=== PATIENT | male | born 1975 | race Two or more races ===

== ENCOUNTER 2024-06-13 06:09 | Inpatient (IN) | payer BC, OTHER ==
[~2024-06-13] VITALS: Ht 162.6 cm; Wt 99.9 kg
[2024-06-13 06:41] VITALS: PULSE 81; RESP 16; O2SAT 93
[2024-06-13] MEDS ORDERED: ONDANSETRON ODT 4 MG TAB PO ONE (06:45)
[2024-06-13] MEDS: ONDANSETRON HCL 4 MG/2 ML VIAL IV ONE (06:46)
[2024-06-13] MEDS: ONDANSETRON HCL 4 MG/2 ML VIAL ONE (06:46)
[2024-06-13] MEDS: HYDROcodone-ACET 5/325MG TAB PO ONE (06:46)
[2024-06-13 07:06] LABS: Basophils # (auto) 0 10 ^3/uL (0-0.2); Eosinophils # (auto) 0.3 10 ^3/uL (0-0.8); Eosinophils % (auto) 4.3 % (0.0-7.0); Hematocrit 48.4 % (41.0-53.0); Hemoglobin 16.9 g/dL (13.5-17.5); Lymphocytes # (auto) 0.5 10 ^3/uL (0.4-5.4); Lymphocytes % (auto) 6.3 % (10.0-50.0); Mean Corpuscular Hemoglobin 31.7 pg (28.0-32.0); Mean Corpuscular Hgb Conc. 34.9 g/dL (32.0-36.0); Monocytes # (auto) 0.5 10 ^3/uL (0-1.3); Monocytes % (auto) 6.1 % (0.0-12.0); Neutrophils # (auto) 6.7 10 ^3/uL (1.6-8.6); Neutrophils % (auto) 83.3 % (37.0-80.0); Platelet Count (auto) 300 10^3/uL (140-450); Red Blood Cells 5.32 10^6/uL (4.5-5.90); Red Cell Distribution Width 12.9 % (11.8-14.3)
--- NOTE | 2024-06-13 07:19 | ED.PDOC ---
History of Present Illness HPI Comments 49-year-old male presents to the ER with no prior history associated with the chief complaint of MUSTAFA. Patient reports on waking up with a headache, sweatiness, N/ and dizziness. Denies chills,/V/D, CP SOB or other associated symptoms, modifiers, or recent injuries at this time. Chief Complaint: Nausea/Vomiting Time Seen by MD: 06:40 Reviewed Notes: Nurses Notes, Medications, Allergies Allergies: Coded Allergies: No Known Drug Allergy (Verified Allergy, Unknown, 06/13/24) Information Source: Patient Mode of Arrival: Ambulatory Severity: Moderate Timing: Hours Duration: Since onset, Hours Prehospital treatment: None Past Medical History PAST MEDICAL HISTORY: Denies Surgical History: Denies all surgeries Family History Family History: Reviewed,noncontributory to illness, Unknown Social History Smoker: Non-Smoker Alcohol: Denies ETOH Use Drugs: Denies Drug Use Lives In: Home Constitutional: reports: sweats; denies: chills, diaphoresis, fatigue, fever, malaise, weakness, others EENTM: denies: blurred vision, double vision, ear bleeding, ear discharge, ear drainage, ear pain, ear ringing, eye pain, eye redness, hearing loss, mouth pain, mouth swelling, nasal discharge, nose bleeding, nose congestion, nose pain, photophobia, tearing, throat pain, throat swelling, voice changes, others Respiratory: denies: cough, hemoptysis, orthopnea, SOB at rest, shortness of breath, SOB with excertion, stridor, wheezing, others Cardiovascular: denies: chest pain, dizzy spells, diaphoresis, Dyspnea on exertion, edema, irregular heart beat, left arm pain, lightheadedness, palpitations, PND, syncope, others Gastrointestinal: reports: nausea; denies: abdomen distended, abdominal pain, blood streaked bowels, constipated, diarrhea, dysphagia, difficulty swallowing, hematemesis, melena, poor appetite, poor fluid intake, rectal bleeding, rectal pain, vomiting, others Genitourinary: denies: burning, dysuria, flank pain, frequency, hematuria, incontinence, penile discharge, penile sore, pain, testicle pain, testicle swelling, urgency, others Neurological: reports: dizziness, headache; denies: fainting, left sided numbness, left sided weakness, numbness, paresthesia, pre-existing deficit, right sided numbness, right sided weakness, seizure, speech problems, tingling, tremors, weakness, others Musculoskeletal: denies: back pain, gout, joint pain, joint swelling, muscle pain, muscle stiffness, neck pain, others Integumetry: denies: bruises, change in color, change in hair/nails, dryness, laceration, lesions, lumps, rash, wounds, others Allergic/Immunocompromised: denies: Difficulty Healing, Frequent Infections, Hives, Itching, others Hematologic/Lymphatic: denies: anemia, blood clots, easy bleeding, easy bruising, swollen glands, others Endocrine: denies: excessive hunger, excessive sweating, excessive thirst, excessive urination, flushing, intolerance to cold, intolerance to heat, unexplained weight gain, unexplained weight loss, others Psychiatric: denies: anxiety, bipolar disorder, depression, hopeless, panic disorder, schizophrenia, sleepless, suicidal, others All Other Systems: Reviewed and Negative Physical Exam Exam Comments Diaphoretic General Appearance: No Apparent Distress, Normal HEENT: Normal ENT Inspection, Pharynx Normal, TMs Normal Neck: Full Range of Motion, Non-Tender, Normal, Normal Inspection Respiratory: Chest Non-Tender, Lungs Clear, No Accessory Muscle Use, No Respiratory Distress, Normal Breath Sounds Cardiovascular: No Edema, No JVD, No Murmur, No Gallop, Normal Peripheral Pulses, Regular Rate/Rhythm Breast Exam: Deferred Gastrointestinal: No Organomegaly, Non Tender, No Pulsatile Mass, Normal Bowel Sounds, Soft Genitalia: Deferred Pelvic: Deferred Rectal: Deferred Extremities: No calf tenderness, Normal capillary refill, Normal inspection, Normal range of motion, Non-tender, No pedal edema Musculoskeletal : Apperance: Normal Neurologic: Alert, neurological physiotherapist II-XII nml as Tested, No Motor Deficits, Normal Affect, Normal Mood, No Sensory Deficits Cerebellar Function: Normal Reflexes: Normal Skin: Dry, Normal Color, Warm Lymphatic: No Adenopathy Was a procedure done? Was a procedure done?: No Differential Dx Considerations may include: acs, cephalea, meningitis, anxiety, sepsis, pneumonia X-Ray, Labs, Meds, VS Vital Signs Date Time Temp Pulse Resp B/P (MAP) Pulse Ox O2 Delivery O2 Flow Rate FiO2 06/13/24 08:35 97.6 66 18 130/81 (97) 96 97.6 06/13/24 06:41 81 16 93 Room Air* 0 21 06/13/24 06:41 97.6 81 16 160/118 (132) 93 97.6 06/13/24 06:35 81 06/13/24 06:28 97.6 81 16 160/118 (132) 93 Lab Test 06/13/24 08:03 06/13/24 06:59 Range/Units Troponin I High Sensitivity < 3 L < 3 L </=54 ng/L White Blood Count 8.0 4.4-10.8 10^3/uL Red Blood Count 5.32 4.5-5.90 10^6/uL Hemoglobin 16.9 13.5-17.5 g/dL Hematocrit 48.4 41.0-53.0 % Mean Corpuscular Volume 91.0 80.0-100.0 fL Mean Corpuscular Hemoglobin 31.7 28.0-32.0 pg Mean Corpuscular Hemoglobin Concent 34.9 32.0-36.0 g/dL Red Cell Distribution Width 12.9 11.8-14.3 % Platelet Count 300 140-450 10^3/uL Mean Platelet Volume 6.9 6.9-10.8 fL Neutrophils (%) (Auto) 83.3 H 37.0-80.0 % Lymphocytes (%) (Auto) 6.3 L 10.0-50.0 % Monocytes (%) (Auto) 6.1 0.0-12.0 % Eosinophils (%) (Auto) 4.3 0.0-7.0 % Basophils (%) (Auto) 0.0 0.0-2.0 % Neutrophils # (Auto) 6.7 1.6-8.6 10 ^3/uL Lymphocytes # (Auto) 0.5 0.4-5.4 10 ^3/uL Monocytes # (Auto) 0.5 0-1.3 10 ^3/uL Eosinophils # (Auto) 0.3 0-0.8 10 ^3/uL Basophils # (Auto) 0 0-0.2 10 ^3/uL Nucleated Red Blood Cells 0.0 % Sodium Level 143 136-145 mmol/L Potassium Level 4.7 3.5-5.1 mmol/L Chloride Level 109 H 98-107 mmol/L Carbon Dioxide Level 25 20-31 mmol/L Anion Gap 9 5-15 Blood Urea Nitrogen 19 9-23 mg/dL Creatinine 1.25 0.700-1.30 mg/dL Glomerular Filtration Rate Calc 70 >90 mL/min BUN/Creatinine Ratio 15.2 10.0-20.0 Serum Glucose 117 H 74-106 mg/dL Calcium Level 9.5 8.7-10.4 mg/dL Current Medications Medications (Trade) Dose Ordered Sig/Stoney Route Start Time Stop Time Status Last Admin Ondansetron HCl (Zofran) 4 mg ONCE ONCE IV 06/13/24 06:45 06/13/24 06:46 DC 06/13/24 06:46 Ceftriaxone Sodium 50 ml @ 100 mls/hr ONCE ONCE IV 06/13/24 08:30 06/13/24 08:59 DC 06/13/24 08:37 Time of 1ST Reevaluation: 07:10 Reevaluation 1ST: Unchanged Patient Education/Counseling: Diagnosis, Treatment, Prognosis Family Education/Counseling: No Family Present Additional Information HI DATA VOL/COMPLEXITY:>2 Ordered Test-PHA, lab, EKG Reviewed Results-cbc, chem, cxr, ekg Interpreted Results-(CT/US) Discuss Tx/Results-with medical personnel, identity management consultant, pt and family pt is diaphoretic due to a pneumonia found on the cxr. he does not feel well and will be admitted for further treatments and eval Departure 1 Departure Time of Disposition: 09:44 Impression: Primary Impression: Pneumonia Disposition: ADMITTED INPATIENT Admit to: Med Surg Condition: Stable Critical Care Note Critical Care Time?: Yes (45 min-critical care time only) Critical care comment: due to the real possibility of patient's condition deteriorating, his care requires my highest attention and readiness to intervene. i assessed the patient, ordered the proper tests and treatments, reassessed him for response, formulated a plan, discussed it with medical personnel, and consultants,. total time include more than 50% face to face contact and does not include any procedures Stability Stability form required: No I personally scribed for ANUPAMA GLORIA MD ([email or web address]) on 06/13/24 at 07:19. Electronically submitted by Frederick Dickson ([email or web address]). ANUPAMA GLORIA MD Jun 13, 2024 07:19
--- NOTE | 2024-06-13 07:23 | DVH ---
CHEST RADIOGRAPH Indication: diaphoresis Technique: Single frontal view of the chest was obtained Comparison: None FINDINGS: The cardiac silhouette is unremarkable. The lungs demonstrate left basilar/ retrocardiac airspace opa cification. The pulmonary vasculature is unremarkable. There is no pleural effusion.. There is no pne umothorax. IMPRESSION: 1. Left basilar/ retrocardiac airspace opacification. << >>
--- NOTE | 2024-06-13 07:28 | DVH ---
CT HEAD WITHOUT CONTRAST Indication: headache EXAM DATE: 06/13/2024 07:00 AM COMPARISON: None TECHNIQUE: CT of the head without intravenous contrast. RADIATION DOSE: CTDIvol: 55.9 mGy, DLP: 896.13 mGy*cm FINDINGS: There is no intracranial hemorrhage. There is no extra-axial fluid, mass, mass effect or midline shif t. The ventricles are midline and normal in size. Basilar cisterns are patent. Bowers-white differentia tion is maintained. The paranasal sinuses and mastoids are well-pneumatized. Imaged portion of the orbits are unremarkabl e. IMPRESSION: 1. No intracranial hemorrhage or mass effect.
[2024-06-13 07:31] LABS: Chloride 109 mmol/L (98-107); Potassium 4.7 mmol/L (3.5-5.1); Sodium 143 mmol/L (136-145)
[2024-06-13 07:32] LABS: Anion Gap 9 (5-15); Carbon Dioxide 25 mmol/L (20-31)
[2024-06-13 07:33] LABS: Calcium 9.5 mg/dL (8.7-10.4)
[2024-06-13 07:37] LABS: BUN/Creatinine Ratio 15.2 (10.0-20.0); Blood Urea Nitrogen 19 mg/dL (9-23); Glucose 117 mg/dL (74-106)
[2024-06-13] MEDS: cefTRIAXone 1GM/50ML D5W 50 ML IV ONE (08:37)
[2024-06-13] MEDS ORDERED: HYDROcodone-ACET 5/325MG TAB PO PRN ×2 (15:30→15:45)
[2024-06-13] MEDS ORDERED: SODIUM CHLORIDE 0.9% 1,000 ML IV SCH (15:30)
[2024-06-13] MEDS ORDERED: predniSONE 20 MG TAB PO SCH (15:30)
[2024-06-13] MEDS ORDERED: DOCUSATE SOD 100 MG CAP PO PRN ×2 (15:30→15:45)
[2024-06-13] MEDS ORDERED: IPRATROPIUM BROM 0.5 MG/2.5ML INH SOL NEB PRN ×2 (15:30→15:45)
[2024-06-13] MEDS ORDERED: AZITHROMYCIN 250 MG TAB PO SCH (15:30)
[2024-06-13] MEDS ORDERED: ALBUTEROL SULF 2.5 MG/0.5ML(0.5%) NEB SOLN NEB PRN ×2 (15:30→15:45)
[2024-06-13] MEDS ORDERED: MAALOX PLUS or MAALOX 30 ML PO PRN ×2 (15:30→15:45)
[2024-06-13] MEDS ORDERED: MORPHINE SULFATE INJ 2 MG/ml SYRG IV PRN ×2 (15:30→15:45)
[2024-06-13] MEDS ORDERED: ONDANSETRON HCL 4 MG/2 ML VIAL IV PRN ×2 (15:30→15:45)
[2024-06-13] MEDS ORDERED: ACETAMINOPHEN 325 MG TAB PO PRN (15:30)
[2024-06-13] MEDS ORDERED: LORazepam 0.5 MG TAB PO PRN ×2 (15:30→15:45)
[2024-06-13] MEDS ORDERED: TEMAZEPAM 15 MG CAP PO PRN ×2 (15:30→15:45)
--- NOTE | 2024-06-13 15:34 | DVHHP2 ---
History of Present Illness Reason for Visit: weakness History of Present Illness 49 yo male with no stated past medical history came to the ed for evaluation with complaints weakness headaches and not feeling well and feeling like they cant function well patient on evaluation was suspected to have URI infection and recommended for admission and continued treatment Pulmonary: Pneumonia Review of Systems Constitutional: Yes: Fever, Weakness; No: Chills, Sweats, Malaise, Other Eyes: No: Pain, Vision change, Conjunctivae inflammation, Eyelid inflammation, Other, Redness ENT: No: Ear pain, Ear discharge, Nose pain, Nose discharge, Nose congestion, Mouth pain, Mouth swelling, Throat pain, Throat swelling, Other Respiratory: Cough, SOB with excertion; No: Dry, Shortness of breath, Wheezing, Hemoptysis, Pleuritic Pain, Sputum, Wheezing, Other Cardiovascular: No: Chest Pain, Palpitations, Orthopnea, Paroxysmal Noc. Dyspnea, Edema, Lt Headedness, Other Gastrointestinal: No: Nausea, Vomiting, Abdominal Pain, Diarrhea, Constipation, Melena, Hematochezia, Other Genitourinary: No Dysuria, No Frequency, No Incontinence, No Hematuria, No Retention, No Other Musculoskeletal: No: other, neck pain, shoulder pain, arm pain, back pain, hand pain, leg pain, foot pain Skin: No: Rash, Lesions, Jaundice, Bruising, Other Neurological: Weakness; No: Numbness, Incoordination, Change in speech, Confusion, Seizures, Other Allergies: Coded Allergies: No Known Drug Allergy (Verified Allergy, Unknown, 06/13/24) Exam Vital Signs Vital Signs Date Time Temp Pulse Resp B/P (MAP) Pulse Ox O2 Delivery O2 Flow Rate FiO2 06/13/24 13:58 69 16 122/81 (95) 93 06/13/24 09:53 97.8 97.8 06/13/24 09:15 Room Air* 0 21 General Appearance: Alert, Oriented X3 HEENT: Atraumatic, PERRLA Respiratory: Clear to auscultation (cough ), Normal air movement Cardiovascular: Regular rate, Normal S1, Normal S2 Abdominal: Normal bowel sounds, Soft, No tenderness Extremities: No clubbing, No cyanosis, No edema Skin: No rashes, No breakdown Neuro: Normal gait, Normal speech Psych/Mental Status: Mood NL Labs/Xrays Labs Test 06/13/24 08:03 06/13/24 06:59 Range/Units Troponin I High Sensitivity < 3 L </=54 ng/L White Blood Count 8.0 4.4-10.8 10^3/uL Red Blood Count 5.32 4.5-5.90 10^6/uL Hemoglobin 16.9 13.5-17.5 g/dL Hematocrit 48.4 41.0-53.0 % Mean Corpuscular Volume 91.0 80.0-100.0 fL Mean Corpuscular Hemoglobin 31.7 28.0-32.0 pg Mean Corpuscular Hemoglobin Concent 34.9 32.0-36.0 g/dL Red Cell Distribution Width 12.9 11.8-14.3 % Platelet Count 300 140-450 10^3/uL Mean Platelet Volume 6.9 6.9-10.8 fL Neutrophils (%) (Auto) 83.3 H 37.0-80.0 % Lymphocytes (%) (Auto) 6.3 L 10.0-50.0 % Monocytes (%) (Auto) 6.1 0.0-12.0 % Eosinophils (%) (Auto) 4.3 0.0-7.0 % Basophils (%) (Auto) 0.0 0.0-2.0 % Neutrophils # (Auto) 6.7 1.6-8.6 10 ^3/uL Lymphocytes # (Auto) 0.5 0.4-5.4 10 ^3/uL Monocytes # (Auto) 0.5 0-1.3 10 ^3/uL Eosinophils # (Auto) 0.3 0-0.8 10 ^3/uL Basophils # (Auto) 0 0-0.2 10 ^3/uL Nucleated Red Blood Cells 0.0 % Sodium Level 143 136-145 mmol/L Potassium Level 4.7 3.5-5.1 mmol/L Chloride Level 109 H 98-107 mmol/L Carbon Dioxide Level 25 20-31 mmol/L Anion Gap 9 5-15 Blood Urea Nitrogen 19 9-23 mg/dL Creatinine 1.25 0.700-1.30 mg/dL Glomerular Filtration Rate Calc 70 >90 mL/min BUN/Creatinine Ratio 15.2 10.0-20.0 Serum Glucose 117 H 74-106 mg/dL Calcium Level 9.5 8.7-10.4 mg/dL Assessment/Plan Assessment/Plan Admit Med/Surge Suspected PNA CXR with left sided opacities IV abx IV hydration Breathing treatment prn prn pain meds steroids daily Plan discussed with: Patient My Orders Orders - VERNA POSADAS MD Procedure Category Date Status Time Ceftriaxone Ivpb PHA 06/14/24 Transmitted Rocephin 10:00 Azithromycin Tablet PHA 06/13/24 Transmitted (Zithromax Tablet) 15:30 Prednisone Tablet PHA 06/13/24 Transmitted 15:30 Albuterol Medneb PHA 06/13/24 Transmitted (Ventolin Medneb) 15:30 Ipratropium Medneb PHA 06/13/24 Transmitted (Atrovent Medneb) 15:30 Med Neb Initial RT 06/13/24 Transmitted Treatment 15:21 Admit ADMIT 06/13/24 Transmitted 15:21 Code Status CODE 06/13/24 Transmitted 15:21 Vital Signs [facility] 06/13/24 Transmitted 15:21 Review Orders With ASHLYN 06/13/24 Transmitted Adm. 15:21 Regular Diet DIET 06/13/24 Transmitted Dinner Sodium Chloride 0.9% PHA 06/13/24 Transmitted 15:30 Lorazepam Tablet PHA 06/13/24 Transmitted (Ativan Tablet) 15:30 Alum & Mag PHA 06/13/24 Transmitted Hydrox-Simethicone 15:30 Docusate Sodium PHA 06/13/24 Transmitted Capsule (Colace 15:30 Acetaminophen Tablet PHA 06/13/24 Transmitted (Tylenol Tablet) 15:30 Temazepam (Restoril) PHA 06/13/24 Transmitted 15:30 Notify Of Changes [facility] 06/13/24 Transmitted From Base 15:21 Advance Directive [facility] 06/13/24 Transmitted 15:21 Basic Metabolic Panel LAB 06/14/24 Verified 04:00 Complete Blood Count LAB 06/14/24 Verified 04:00 Patient Condition ORDERS 06/13/24 Transmitted 15:21 Allergies ASHLYN 06/13/24 Transmitted 15:21 Hydrocodone-Acet PHA 06/13/24 Transmitted 5/325mg Tab ([place] 15:30 Ondansetron Hcl PHA 06/13/24 Transmitted (Zofran) 15:30 Morphine 2mg Iv Q4hprn PHA 06/13/24 Transmitted 15:30 Notify Of Changes [facility] 06/13/24 Transmitted From Base 15:21 Oxygen By Nasal RT 06/13/24 Transmitted Cannula 15:21 Problem List: (1) Pneumonia Date of Service: Jun 13, 2024 Billing Provider: VERNA POSADAS MD Common Visit Codes: 99233-[id number] INP/OBS CARE (HIGH) VERNA POSADAS MD Jun 13, 2024 15:34
[2024-06-13] MEDS: SODIUM CHLORIDE 0.9% 1,000 ML IV SCH (16:46)
[2024-06-13 16:50] VITALS: BP 125/79; PULSE 63; RESP 16; TEMP 97.8; O2SAT 92
[2024-06-13 20:44] VITALS: O2SAT 97
[2024-06-14 04:42] LABS: Basophils # (auto) 0.1 10 ^3/uL (0-0.2); Basophils % (auto) 0.7 % (0.0-2.0); Eosinophils # (auto) 0.2 10 ^3/uL (0-0.8); Eosinophils % (auto) 2.1 % (0.0-7.0); Hematocrit 47.8 % (41.0-53.0); Hemoglobin 16.7 g/dL (13.5-17.5); Lymphocytes # (auto) 2.8 10 ^3/uL (0.4-5.4); Lymphocytes % (auto) 29.2 % (10.0-50.0); Mean Corpuscular Hemoglobin 31.9 pg (28.0-32.0); Mean Corpuscular Hgb Conc. 34.9 g/dL (32.0-36.0); Mean Corpuscular Volume 91.4 fL (80.0-100.0); Monocytes # (auto) 0.5 10 ^3/uL (0-1.3); Monocytes % (auto) 5.1 % (0.0-12.0); Neutrophils % (auto) 62.9 % (37.0-80.0); Nucleated Red Blood Cells % 0.1 %; Platelet Count (auto) 308 10^3/uL (140-450); Red Blood Cells 5.23 10^6/uL (4.5-5.90); Red Cell Distribution Width 12.9 % (11.8-14.3); White Blood Cell 9.6 10^3/uL (4.4-10.8)
[2024-06-14 04:47] LABS: Chloride 108 mmol/L (98-107); Potassium 3.8 mmol/L (3.5-5.1); Sodium 143 mmol/L (136-145)
[2024-06-14 04:48] LABS: Anion Gap 8 (5-15); Calcium 9.4 mg/dL (8.7-10.4); Carbon Dioxide 27 mmol/L (20-31)
[2024-06-14 04:53] LABS: BUN/Creatinine Ratio 12.8 (10.0-20.0); Blood Urea Nitrogen 17 mg/dL (9-23); Glucose 86 mg/dL (74-106)
[2024-06-14] MEDS: ACETAMINOPHEN 325 MG TAB PO PRN (08:13)
[2024-06-14] MEDS: cefTRIAXone 1GM/50ML D5W 50 ML IV SCH (09:29)
[2024-06-14] MEDS ORDERED: cefTRIAXone 1GM/50ML D5W 50 ML IV SCH (10:00)
[2024-06-14] MEDS: predniSONE 20 MG TAB PO SCH (10:23)
[2024-06-14] MEDS: AZITHROMYCIN 250 MG TAB PO SCH (10:24)
[2024-06-14 10:34] VITALS: O2SAT 95
[2024-06-14 11:50] LABS: COVID19 ANTIGEN SOFIA FIA NEGATIVE (NEGATIVE); Rapid Influenza A Negative (Negative); Rapid Influenza B Negative (Negative)
[2024-06-14 13:38] VITALS: BP 115/75; PULSE 62; RESP 17; TEMP 98.7; O2SAT 96
--- NOTE | 2024-06-14 14:41 | ECG ---
[facility] Test Date: 2024-06-13 Test Time: 06:35:01 Pat Name: MAYO TUCKER Department: ER Room: [address] [place] [address] A Gender: M [employer] Room: DALE : 1975 Requested By: ANUPAMA GLORIA Order Number: [id number] Reading MD: Reno Garcia Measurements Intervals [place] Rate: 81 P: 54 TN: 163 QRS: -8 QRSD: 91 T: 3 QT: 382 QTc: 444 Interpretive Statements Sinus rhythm Electronically Signed On 06-15-2024 8:24:56 PST by Reno Garcia Please click the below link to view image of tracing.
[2024-06-14] MEDS ORDERED: AZIT500T66 PO (15:31)
--- NOTE | 2024-06-14 19:13 | DVHDSRES ---
Discharge Summary Date of Admission Resident Creating Document: KIRK SUE RESIDENT Jun 13, 2024 at 15:21 Date of Discharge: Jun 14, 2024 Admitting Diagnosis Suspected PNA CXR with left sided opacities Wounds: no wounds Labs/Diagnostic Data: Laboratory Results Test 06/14/24 11:00 06/14/24 03:49 06/13/24 08:03 Influenza Type A Antigen Negative (Negative) Influenza Type B Antigen Negative (Negative) SARS-CoV-2 Antigen (Rapid) Negative (NEGATIVE) White Blood Count 9.6 10^3/uL (4.4-10.8) Red Blood Count 5.23 10^6/uL (4.5-5.90) Hemoglobin 16.7 g/dL (13.5-17.5) Hematocrit 47.8 % (41.0-53.0) Mean Corpuscular Volume 91.4 fL (80.0-100.0) Mean Corpuscular Hemoglobin 31.9 pg (28.0-32.0) Mean Corpuscular Hemoglobin Concent 34.9 g/dL (32.0-36.0) Red Cell Distribution Width 12.9 % (11.8-14.3) Platelet Count 308 10^3/uL (140-450) Mean Platelet Volume 7.1 fL (6.9-10.8) Neutrophils (%) (Auto) 62.9 % (37.0-80.0) Lymphocytes (%) (Auto) 29.2 % (10.0-50.0) Monocytes (%) (Auto) 5.1 % (0.0-12.0) Eosinophils (%) (Auto) 2.1 % (0.0-7.0) Basophils (%) (Auto) 0.7 % (0.0-2.0) Neutrophils # (Auto) 6.0 10 ^3/uL (1.6-8.6) Lymphocytes # (Auto) 2.8 10 ^3/uL (0.4-5.4) Monocytes # (Auto) 0.5 10 ^3/uL (0-1.3) Eosinophils # (Auto) 0.2 10 ^3/uL (0-0.8) Basophils # (Auto) 0.1 10 ^3/uL (0-0.2) Nucleated Red Blood Cells 0.1 % Sodium Level 143 mmol/L (136-145) Potassium Level 3.8 mmol/L (3.5-5.1) Chloride Level 108 mmol/L (98-107) Carbon Dioxide Level 27 mmol/L (20-31) Anion Gap 8 (5-15) Blood Urea Nitrogen 17 mg/dL (9-23) Creatinine 1.33 mg/dL (0.700-1.30) Glomerular Filtration Rate Calc 65 mL/min (>90) BUN/Creatinine Ratio 12.8 (10.0-20.0) Serum Glucose 86 mg/dL (74-106) Calcium Level 9.4 mg/dL (8.7-10.4) Troponin I High Sensitivity < 3 ng/L (</=54) Other Laboratory Tests 06/14/24 03:49 Brief Hx & Hospital Course: Patient is a 49-year-old male with no significant past medical history came to the ED with a chief complaint of sweating, headache, fever, dizziness night prior to admission. Patient reported he was apparently well 1 day prior to admission and while he was sleeping he had sweating, headache, dizziness and felt feverish but did not record the temperature. Patient reported no chills, rigors, diarrhea, abdominal pain, shortness of breath, cough, sore throat, congestion, malaise. Patient had no history of weight loss, no previous episode of fever or night sweats. On admission the patient had high blood pressure 160/118, heart rate 81 regular with a SpO2 95% on room air. Head CT was done without contrast showed no acute intracranial abnormality, chest x-ray showed left basilar/retrocardiac airspace opacification which could be likely due to underlying infectious etiology. Influenza type a and B were negative as well as COVID-19 antigen was negative. On CBC patient had WBC count within normal limits with mild left shift. Patient had mild CALLIE likely hemodynamically mediated for which patient was given IV fluids. Patient was given 1 dose of IV ceftriaxone and 1 dose of oral azithromycin. Patient had no active complaints. Patient was discharged in stable condition with oral azithromycin for 5 days. Patient was advised to follow up with the PCP in 1 week. Review of systems Patient seen and examined with the bedside. Patient alert and oriented to time, place and person. Patient's vitals stable at the time of examination. Patient does not complain of cough, sore throat, chest pain, shortness of breath, nausea, vomiting, diarrhea, abdominal pain. Physical Examination Gen - no pallor, no icterus, no cyanosis, no clubbing, no LAD, no edema . Skin - Patients skin is warm and dry. HEENT - normocephalic, atraumatic, moist mucous membranes. Neck - full ROM, no LAD, no JVD Pulmonary - B/L vesicular breath sounds. no crackles , no wheezing, no stridor. cardiovascular - normal S1,S2 heard. no murmurs heard. peripheral pulses normal radial 2+, pedal 2+. capillary refill normal <2 secs. GI - soft abdomen. no tenderness to deep palpation . no hepatospleenomegaly. Bowel sounds normoactive Neurological - Patient is A/O X 3. Bilateral upper extremity strength 5/5, bilateral lower extremity strength 5/5, no facial droop, normal speech, no tremor, no sensory deficiets. Consults/Reason for consult no consultation Operations or Procedures Head CT without contrast showing no intracranial hemorrhage or mass effect Chest x-ray showing left basilar/retrocardiac airspace opacities Condition at Discharge: Good Final Diagnosis/Problems List - Suspected community acquired pneumonia likely d/t ?gram+/- ?atypical - Headache, unspecified Discharge Disposition: Home Discharge Instruct/Medications Diet: Regular Activity: No Restrictions, As Tolerated Follow Up/Referral: Follow up with the PCP in one week Medications: As per EMR Discharge Statement: "Patient was advised to return to the ER or call 911 if any headaches, dizziness, shortness of breath, chest pain, abdominal pain, bleeding, fevers, or worsening of medical condition. Patient was counseled about treatment plan, medications, possible side effects, patientverbalized understanding. All questions were answered to the best of my ability. This discharge took greater then 30 minutes in planning, reviewing documentation, counseling the patient, and discussing with other team members." ASSESSMENT ASSESSMENT Assessment - Suspected community acquired pneumonia likely d/t ?gram+/- ?atypical - Headache, unspecified KIRK SUE RESIDENT Jun 14, 2024 19:13
== END 2024-06-14 14:01 | disposition home or self-care (01) | DRG 179 ==
LOC: ER 06:09 → OVERFLOW 13:27 → ER 15:30
PROVIDERS: ADMIT Student in an Organized Health Care Education/Training Program; ATTEND Student in an Organized Health Care Education/Training Program
DX: J15.69 Pneumonia due to other Gram-negative bacteria (principal); J15.9 Unspecified bacterial pneumonia; R51.9 Headache, unspecified; Z20.822 Contact with and (suspected) exposure to COVID-19
CPT/HCPCS: 36415; 70450; 71045; 80048; 84484; 85025; 87426; 87804; 93005; 99291; G0378; J2405